=== PATIENT | female | born 1955 | race Two or more races ===

== ENCOUNTER 2019-04-09 09:43 | Inpatient (IN) | payer MEDICARE, MEDICAID ==
[~2019-04-09] VITALS: Ht 167.6 cm; Wt 74.4 kg
--- NOTE | 2019-04-09 10:05 | NUR ---
ER PHLEB AT BEDSIDE FOR BLOOD DRAW.
[2019-04-09 10:20] LABS: BASOPHILS % (AUTO) 0.7 % (0.0-2.0); EOSINOPHILS % (AUTO) 2.7 % (0.0-6.0); HEMATOCRIT 38 % (33-45); HEMOGLOBIN 12.1 g/dL (11.5-14.8); LYMPHOCYTES # (AUTO) 0.8 /CMM (0.8-4.8); LYMPHOCYTES % (AUTO) 20.8 % (20.0-44.0); MEAN CORPUSCULAR HGB CONC 32 g/dl (31.0-36.0); MEAN CORPUSCULAR VOLUME 87 fL (82-100); MONOCYTES # (AUTO) 0.3 /CMM (0.1-1.30); MONOCYTES % (AUTO) 9.2 % (2.0-12.0); NEUTROPHILS # (AUTO) 2.4 /CMM (1.8-8.9); NEUTROPHILS % (AUTO) 66.6 % (43.0-81.0); PLATELET COUNT (AUTO) 195 /CMM (150-450); RED BLOOD CELL COUNT(AUTO) 4.42 MIL/uL (4.0-5.2); WHITE BLOOD COUNT (AUTO) 3.6 K/uL (4.3-11.0)
[2019-04-09 10:28] LABS: CALCIUM, SERUM 10.5 mg/dL (8.5-10.1); CARBON DIOXIDE 23 mmol/L (21-32); CHLORIDE 109 mmol/L (98-107); CREATININE 0.6 mg/dL (0.6-1.3); GLUCOSE 104 mg/dL (74-106); POTASSIUM 3.9 mmol/L (3.5-5.1); SODIUM SERUM 140 mmol/L (136-145); UREA NITROGEN, BLOOD 10 mg/dL (7-18)
[2019-04-09] MEDS ORDERED: MAGN400O6 PO (10:31)
[2019-04-09] MEDS ORDERED: ASCO500T9 PO (10:31)
[2019-04-09] MEDS ORDERED: AMLO10TA7 PO (10:31)
[2019-04-09] MEDS ORDERED: LOSA50TA39 PO (10:31)
[2019-04-09] MEDS ORDERED: SIME80TA15 PO (10:31)
[2019-04-09] MEDS ORDERED: MERO1VIA3 IV (10:31)
[2019-04-09] MEDS ORDERED: TOPI50TA24 PO (10:31)
[2019-04-09] MEDS ORDERED: SERT50TA PO (10:31)
[2019-04-09] MEDS ORDERED: ACET-868 PO (10:31)
[2019-04-09] MEDS ORDERED: PRAV20TA4 PO (10:31)
[2019-04-09] MEDS ORDERED: BISA10SU11 RC (10:31)
[2019-04-09] MEDS ORDERED: HYDR-4384 PO (10:31)
[2019-04-09] MEDS ORDERED: TAMS-12 PO (10:31)
[2019-04-09] MEDS ORDERED: GABA-534 PO (10:31)
[2019-04-09] MEDS ORDERED: CALC-343 PO (10:31)
[2019-04-09] MEDS ORDERED: OMEP20CA11 PO (10:31)
[2019-04-09] MEDS ORDERED: DICL100G16 TP (10:31)
[2019-04-09] MEDS ORDERED: NA P133E RC (10:31)
[2019-04-09] MEDS ORDERED: CLON0.5T4 PO (10:31)
[2019-04-09] MEDS ORDERED: MINE133E RC (10:31)
[2019-04-09] MEDS ORDERED: OLAN5TAB3 PO (10:31)
[2019-04-09 10:34] LABS: ALANINE AMINOTRANSFERASE 18 U/L (12-78); ALBUMIN 3.4 g/dL (3.4-5.0); ALCOHOL, BLOOD < 3 mg/dL (0-0); ALKALINE PHOSPHATASE 87 U/L (46-116); ASPARTATE AMINOTRANSFERASE 12 U/L (15-37); BILIRUBIN,DIRECT 0.1 mg/dL (0.0-0.2); BILIRUBIN,TOTAL 0.3 mg/dL (0.2-1.0); TOTAL PROTEIN, SERUM 7.4 g/dL (6.4-8.2)
[2019-04-09 10:36] LABS: SALICYLATE 1.2 mg/dL (2.8-20.0)
[2019-04-09 10:37] LABS: APPEARANCE,URINE Clear (CLEAR); BILIRUBIN,URINE Negative (NEGATIVE); BLOOD, URINE Trace-intact Ery/uL (NEGATIVE); COLOR,URINE Light yellow (YELLOW); KETONES,URINE Negative (NEGATIVE); LEUKOCYTE ESTERASE ,URINE Trace (NEGATIVE); NITRITE, URINE Negative (NEGATIVE); PH,URINE 7.5 (5.0-8.0); PROTEIN,URINE Negative (NEGATIVE); UGLUCOSE Negative (NEGATIVE); UROBILINOGEN,URINE 0.2 EU/dL (0.2)
[2019-04-09 10:45] LABS: BACTERIA,URINE None seen /HPF (None Seen); MUCUS,URINE Moderate /LPF (None Seen); SQUAMOUS EPITHELIAL CELL,UR Many /HPF (None Seen)
--- NOTE | 2019-04-09 11:19 | NUR ---
RN SUP GAVE BED 210 A Addendum: 04/09/19 at 1125 by DUSTY CORRECTION: BED IS 212 A
--- NOTE | 2019-04-09 11:28 | NUR ---
Patient awake alert non distress she does follows command noted bilateral wrist lac superficial cleanse and cover ,lack to left neck superficial cleanse with saline
--- NOTE | 2019-04-09 11:29 | NUR ---
Fire Equipment Inspector Helper @ bedside now [id number] ,transfer care report to Reina rolle 212 A
[2019-04-09] MEDS ORDERED: ACETAMINOPHEN 325 MG TABLET PO PRN ×2 (13:00→14:30)
[2019-04-09] MEDS ORDERED: MAG HYDROX/AL HYDROX/SIMETH 30 ML UDC PO PRN (13:00)
[2019-04-09] MEDS ORDERED: BLOOD SUGAR DIAGNOSTIC 1 EACH STRIP IN ONE (13:00)
[2019-04-09] MEDS ORDERED: clonazePAM 0.5 MG TABLET PO PRN (13:00)
[2019-04-09 13:04] VITALS: BP 125/72
--- NOTE | 2019-04-09 14:00 | NUR ---
GPS ADMITTING NOTE: PT 63 Y/O FEMALE ADMITTED FROM [facility] DUE TO SUICIDAL ATTEMPT BY CUTTING HER WRIST WITH A DISPOSAL RAZOR BLADE. PT PLACED ON 5150 HOLD FOR DTS. PER HOLD PT STATED "I CUT MY WRIST WITH A DISPOSABLE RAZOR SHRUTI THAT A SHIPPING AND RECEIVING WEIGHER GAVE IT TO ME" .PT FURTHER STATED THAT SHE STARTED TO HEARING VOICES AGAIN TELLING HER" TO AND TO KILL MYSELF"UPON FACE TO FACE EVALUATION PT A/OX3 AMBULATORY , DENIES SI/HI AT THIS TIME DENIES FEELING DEPRESSED. PT ADMIT HEARING VOICES TELLING HER TO , PT FEELING ANGRY AT HERSELF .DR ADAM AWARE WITH STANDING ORDERS,VENKAT JOSE NOTIFIED OF ADMISSION AND TO RECONCILED HOME MEDICATIONS. PT SKIN CHECKED PICTURE PLACED IN THE CHART. ALL BELONGING AND CONTRABAND CHECKED.WILL CONTINUE CLOSE MONITORING FOR BEHAVIOR ,SAFETY.
[2019-04-09] MEDS ORDERED: HYDROCODONE/APAP 5/325MG 1 EACH TABLET PO PRN (14:30)
[2019-04-09] MEDS: NITROFURANTOIN/NITROFURAN MAC 100 MG CAPSULE PO SCH ×2 (15:20→21:05)
[2019-04-09 16:00] VITALS: BP 117/63
[2019-04-09] MEDS: SIMETHICONE 80 MG TAB.CHEW PO SCH ×2 (16:20→21:05)
[2019-04-09] MEDS ORDERED: DICLOFENAC TOPICAL 100 GM GEL..GM. TP SCH (17:00)
[2019-04-09] MEDS: MAGNESIUM HYDROXIDE 30 ML UDC PO PRN (19:52)
--- NOTE | 2019-04-09 19:54 | NUR ---
GPS RN NOTES: PATIENT STATED, "IM CONSTIPATED". PER PT REQUEST MOM. ADMINISTER MOM 30 ML PO. TOLERATED WELL CONTINUE TO MONITOR.
--- NOTE | 2019-04-09 21:09 | NUR ---
GPS RN NOTES: PT COMPLAIN OF 3/10 GENERAL BODY PAIN. PATIENT REQUESTED TYLENOL. ADMINISTERED TYLENOL 650 MG PO @ 2106. PT TOLERATED WELL CONT TO MONITOR.
[2019-04-09] MEDS ORDERED: DIAZEPAM 5 MG TABLET ONE (21:35)
[2019-04-09] MEDS: TAMSULOSIN 0.4 MG CAP.SR.24H PO SCH (22:02)
[2019-04-10 04:39] VITALS: BP 122/79
[2019-04-10] MEDS: clonazePAM 0.5 MG TABLET PO PRN ×3 (04:43→16:17)
--- NOTE | 2019-04-10 04:46 | NUR ---
GPS RN NOTES: UPON DOING ROUNDS, PT WAS AWAKE IN BED SITTING DOWN. WHEN ASKED PT IF SHE IS OKAY PT STATED, "I CANT GO BACK T SLEEP AND IM ANXIOUS. " OFFERED KLONOPIN 0.5 MG PO PRN. CHECKED VITALS. VITALS WNL ADMINISTERED MEDICATION. PT TOLERATED WELL CONTINUE TO MONITOR.
[2019-04-10 08:00] VITALS: BP 114/59
[2019-04-10] MEDS: SIMETHICONE 80 MG TAB.CHEW PO SCH ×4 (08:03→21:14)
[2019-04-10] MEDS: NITROFURANTOIN/NITROFURAN MAC 100 MG CAPSULE PO SCH ×2 (08:03→21:14)
[2019-04-10] MEDS: PANTOPRAZOLE 40 MG TABLET.DR PO SCH (08:03)
[2019-04-10 08:04] LABS: ALBUMIN 3.3 g/dL (3.4-5.0); BILIRUBIN,TOTAL 0.4 mg/dL (0.2-1.0); CALCIUM, SERUM 10.1 mg/dL (8.5-10.1); CREATININE 0.5 mg/dL (0.6-1.3); TOTAL PROTEIN, SERUM 7.1 g/dL (6.4-8.2)
[2019-04-10 08:05] LABS: CHOLESTEROL 190 mg/dL (<200); HDL CHOLESTEROL 46 mg/dL (40-60); LDL 106 mg/dL (0-99); TRIGLYCERIDES 185 mg/dL (30-150)
[2019-04-10] MEDS: LOSARTAN POTASSIUM 50 MG TABLET PO SCH (08:06)
[2019-04-10] MEDS: ATORVASTATIN 10 MG TABLET PO SCH (08:06)
[2019-04-10] MEDS: AMLODIPINE BESYLATE 10 MG TABLET PO SCH (08:07)
--- NOTE | 2019-04-10 09:13 | NUR ---
RN NOTE: PATIENT IS CURRENTLY HEARING VOICES TELLING HER TO KILL HERSELF. PATIENT DOES NOT HAVE A PLAN AND WILL CONTRACT FOR SAFETY IF SHE DOES WANT TO HARM HERSELF. CHARGE NURSE NOTIFIED. CODI MERRILL GIVEN.
--- NOTE | 2019-04-10 11:50 | NUR ---
Family Contact: SW called the pts daughter, Amara ([phone]), and left a message on her voicemail stating that the SW would like to speak to her regarding the pts care.
[2019-04-10] MEDS: SERTRALINE HCL 50 MG TABLET PO SCH (12:48)
--- NOTE | 2019-04-10 14:40 | NUR ---
Facility Contact: SW called [facility] ([phone]) and spoke to Nirali who stated that the pt would be readmitted back to the facility depending on the clinical that would sent upon his discharge. She stated that she is not too familiar with the case and will call the SW back with more information.
--- NOTE | 2019-04-10 14:42 | NUR ---
Initial Discharge Plan: Pt currently resides at [facility] [place] [address] [place] [address]; ([phone]). Per pt, she would like to return to the assisted living that she was residing in before the alf facility. JOSHUA spoke to Nirali ([phone]) in Admissions who stated that the pt would be readmitted depending on the clinical at the time of discharge. JOSHUA will work with the pt and the MD regarding appropriate discharge planning.
[2019-04-10 16:00] VITALS: BP 100/65
--- NOTE | 2019-04-10 16:19 | NUR ---
RN NOTE: PATIENT C/O ANXIETY. PRN KLONOPIN GIVEN.
[2019-04-10 20:46] VITALS: BP 99/68
[2019-04-10] MEDS: TAMSULOSIN 0.4 MG CAP.SR.24H PO SCH (21:14)
[2019-04-10] MEDS: TEMAZEPAM 7.5 MG CAPSULE PO PRN (21:33)
--- NOTE | 2019-04-10 21:33 | NUR ---
GPS/RN NOTE: REQUESTED FOR SLEEPING PILL, TEMAZEAPM 15 MG CAP PO GIVEN.
[2019-04-10] MEDS: MAGNESIUM HYDROXIDE 30 ML UDC PO PRN (21:44)
--- NOTE | 2019-04-10 21:44 | NUR ---
GPS/RN NOTE: C/O CONSTIPATION, MILK OF MAGNESIA 30 ML PO GIVEN.
[2019-04-10] MEDS ORDERED: OLANZAPINE 5 MG TABLET PO SCH (22:00)
[2019-04-11] MEDS: PANTOPRAZOLE 40 MG TABLET.DR PO SCH (07:30)
[2019-04-11 08:00] VITALS: BP 105/59
[2019-04-11] MEDS: clonazePAM 0.5 MG TABLET PO PRN ×3 (08:10→16:21)
[2019-04-11] MEDS: AMLODIPINE BESYLATE 10 MG TABLET PO SCH (08:10)
[2019-04-11] MEDS: ATORVASTATIN 10 MG TABLET PO SCH (08:10)
[2019-04-11] MEDS: SERTRALINE HCL 50 MG TABLET PO SCH (08:10)
[2019-04-11] MEDS: SIMETHICONE 80 MG TAB.CHEW PO SCH ×4 (08:10→20:37)
[2019-04-11] MEDS: LOSARTAN POTASSIUM 50 MG TABLET PO SCH (08:11)
--- NOTE | 2019-04-11 08:15 | NUR ---
SATINDER NOTE: PATIENT C/O ANXIETY. DESIRAE KLONOPIN GIVEN. Addendum: 04/11/19 at 1211 by ABBEY NGO RN PATIENT C/O ANXIETY, PRN KLONOPIN PO GIVEN
--- NOTE | 2019-04-11 08:47 | NUR ---
WOUND CARE CONSULT: PT PRESENTS WITH BILATERAL WRIST ABRASIONS AND BILATERAL NECK DRY ABRASIONS, PRESENT ON ADMISSION. RECOMMENDATIONS MADE FOR WOUND CARE FOR WRIST ABRASIONS. DISCUSSED WITH NURSING STAFF. NECK ABRASIONS ARE DRY AND OPEN TO AIR. PT IS CONTINENT AND INDEPENDENT WITH BED MOBILITY. WILL SEE PRN. [place] IN AGREEMENT WITH PLAN OF CARE. Addendum: 04/11/19 at 0848 by WALTER KRUEGER WNDNU Amended: Links added.
[2019-04-11] MEDS: NITROFURANTOIN/NITROFURAN MAC 100 MG CAPSULE PO SCH ×2 (09:09→20:37)
--- NOTE | 2019-04-11 09:11 | NUR ---
PROTONIX NOT AVAILABLE IN [facility]. PHARMACY CONTACTED. DOSE MISSED D/T MED UNAVAILABILITY.
--- NOTE | 2019-04-11 14:15 | NUR ---
Facility Contact: JOSHUA spoke to Nirali ([phone]) in Admissions for [facility] and stated that the pt is on a 7 Day Bed Hold and will be accepted back upon clinical after that point in time.
[2019-04-11 16:00] VITALS: BP 103/64
--- NOTE | 2019-04-11 16:23 | NUR ---
RN NOTE: PATIENT IS C/O ANXIETY. PRN KLONOPIN GIVEN.
--- NOTE | 2019-04-11 19:36 | NUR ---
GPS/RN NOTE: RESTING QUIETLY IN BED, CALM, COMFORTABLE, NO APPARENT DISTRESS NOTED. WILL CONTINUE MONITOR FOR SAFETY.
[2019-04-11 19:54] VITALS: BP 114/61
[2019-04-11] MEDS: TAMSULOSIN 0.4 MG CAP.SR.24H PO SCH (20:36)
[2019-04-11] MEDS: MAGNESIUM HYDROXIDE 30 ML UDC PO PRN (20:37)
--- NOTE | 2019-04-11 20:39 | NUR ---
GPS/RN NOTE: REQUESTED FOR MILK OF MAGNESIA 30 ML PO GIVEN.
[2019-04-11] MEDS: TEMAZEPAM 7.5 MG CAPSULE PO PRN (20:48)
--- NOTE | 2019-04-11 20:49 | NUR ---
GPS/RN NOTE: TEMAZEPAM 15 MG CAP PO GIVEN FOR SLEEP PER PATIENT'S REQUEST
[2019-04-11] MEDS: OLANZAPINE 5 MG TABLET PO SCH (21:37)
--- NOTE | 2019-04-12 01:50 | NUR ---
RN NOTE: PATIENT IS C/O ANXIETY. PRN KLONOPIN GIVEN. ALSO PT COMPLAINING NOT URINATION MUCH,BALDER SCAN DONE WITH 500 , DR NERI NOTIFIED WITH NO ORDER AT THIS TIME .
[2019-04-12 08:00] VITALS: BP 105/64
[2019-04-12] MEDS: LOSARTAN POTASSIUM 50 MG TABLET PO SCH (08:27)
[2019-04-12] MEDS: PANTOPRAZOLE 40 MG TABLET.DR PO SCH (08:27)
[2019-04-12] MEDS: SIMETHICONE 80 MG TAB.CHEW PO SCH ×4 (08:28→20:26)
[2019-04-12] MEDS: AMLODIPINE BESYLATE 10 MG TABLET PO SCH (08:28)
[2019-04-12] MEDS: ATORVASTATIN 10 MG TABLET PO SCH (08:29)
[2019-04-12] MEDS: NITROFURANTOIN/NITROFURAN MAC 100 MG CAPSULE PO SCH ×2 (08:29→20:26)
[2019-04-12] MEDS: clonazePAM 0.5 MG TABLET PO PRN ×2 (08:42→16:17)
[2019-04-12] MEDS ORDERED: SERTRALINE HCL 50 MG TABLET PO SCH (09:00)
--- NOTE | 2019-04-12 11:35 | NUR ---
GPS RN NOTE: PT URINATE X2 NO S/S DISTRESS NOTED AT THIS TIME.
[2019-04-12 16:00] VITALS: BP 114/61
[2019-04-12 20:11] VITALS: BP 100/65
[2019-04-12] MEDS: MAGNESIUM HYDROXIDE 30 ML UDC PO PRN (20:27)
[2019-04-12] MEDS: TEMAZEPAM 7.5 MG CAPSULE PO PRN (20:29)
--- NOTE | 2019-04-12 20:30 | NUR ---
GPS/RN NOTE: TEMAZEPAM 15 MG CAP PO FOR SLEEP PER HER REQUEST. C/O ALSO OF CONSTIPATION, MILK OF MAGNESIA 30 ML PO GIVEN.
[2019-04-12] MEDS: OLANZAPINE 5 MG TABLET PO SCH (21:36)
[2019-04-12] MEDS: TAMSULOSIN 0.4 MG CAP.SR.24H PO SCH (21:36)
[2019-04-13 08:00] VITALS: BP 130/63
[2019-04-13] MEDS: clonazePAM 0.5 MG TABLET PO PRN ×2 (08:01→13:18)
[2019-04-13] MEDS: LOSARTAN POTASSIUM 50 MG TABLET PO SCH (08:02)
[2019-04-13] MEDS: AMLODIPINE BESYLATE 10 MG TABLET PO SCH (08:02)
[2019-04-13] MEDS: PANTOPRAZOLE 40 MG TABLET.DR PO SCH (08:02)
[2019-04-13] MEDS: SIMETHICONE 80 MG TAB.CHEW PO SCH ×4 (08:02→21:07)
[2019-04-13] MEDS: NITROFURANTOIN/NITROFURAN MAC 100 MG CAPSULE PO SCH ×2 (08:03→21:06)
[2019-04-13] MEDS: ATORVASTATIN 10 MG TABLET PO SCH (08:03)
[2019-04-13] MEDS: SERTRALINE HCL 50 MG TABLET PO SCH (08:39)
--- NOTE | 2019-04-13 13:18 | NUR ---
GPS RN NOTE: CLONAZEPAM 0.5MG ADMINISTERED REQUESTED PRN FOR ANXIETY
--- NOTE | 2019-04-13 14:17 | NUR ---
Group Note: SW encouraged pt. to participate in group on 04/13/19 regarding gratefulness and holiday sensory activity held at 1:00pm in the activity room. Pt refused to attend stating, I too tired, I want to rest. SW encouraged patient to attend later but respected patient's self-determination.
[2019-04-13 16:00] VITALS: BP 110/61
[2019-04-13] MEDS: MAGNESIUM HYDROXIDE 30 ML UDC PO PRN (20:36)
--- NOTE | 2019-04-13 20:40 | NUR ---
GPS RN NOTES: PT STATED, "I FEEL CONSTIPATED. CAN I HAVE MILK OF MG PLEASE?" ADMINISTERED MOM 15ML PO PRN. PT TOLERATED WELL. CONT TO MONITOR.
[2019-04-13] MEDS: TAMSULOSIN 0.4 MG CAP.SR.24H PO SCH (21:07)
--- NOTE | 2019-04-13 21:09 | NUR ---
GPS RN NOTES: ADMINISTER MEDICATION DUE. UNABLE TO SCAN MACROBID CHECKED WITH CHARGE NURSE WITH MEDICATION. RETURNED MEDICATION AND ADMINISTERED OTHER MACROBID DID NOT SCAN AGAIN. CHECKED WITH CHARGE NURSE. PT TOLERATED MED WELL CONT TO MON
[2019-04-13 21:10] VITALS: BP 100/55
[2019-04-13] MEDS: OLANZAPINE 5 MG TABLET PO SCH (22:17)
[2019-04-13] MEDS: TEMAZEPAM 7.5 MG CAPSULE PO PRN (22:23)
--- NOTE | 2019-04-13 22:25 | NUR ---
GPS RN NOTES: PT STATED, "I CANT GO TO SLEEP. CAN I HAVE A SLEEPING PILL NOW" ADMINISTERED RESTORIL 15MG PO PRN ORDERED. PT TOLERATED WELL. CONT TO MONITOR.
[2019-04-14 08:00] VITALS: BP 114/71
[2019-04-14] MEDS: PANTOPRAZOLE 40 MG TABLET.DR PO SCH (08:16)
[2019-04-14] MEDS: LOSARTAN POTASSIUM 50 MG TABLET PO SCH (08:16)
[2019-04-14] MEDS: ATORVASTATIN 10 MG TABLET PO SCH (08:16)
[2019-04-14] MEDS: SIMETHICONE 80 MG TAB.CHEW PO SCH ×4 (08:17→21:08)
[2019-04-14] MEDS: SERTRALINE HCL 50 MG TABLET PO SCH (08:17)
[2019-04-14] MEDS: AMLODIPINE BESYLATE 10 MG TABLET PO SCH (08:17)
[2019-04-14] MEDS: NITROFURANTOIN/NITROFURAN MAC 100 MG CAPSULE PO SCH ×2 (08:18→21:09)
--- NOTE | 2019-04-14 08:46 | NUR ---
GPS RN NOTE: SPOKE TO ARMAND LEWIS REGARDING D/C PLANNING FOR PATIENT. PATIENT DOES NOT WANT TO GO BACK TO REHAB, [facility], AND STATES SHE IS UNABLE TO CONTRACT FOR SAFETY IF SHE IS DISCHARGED.
[2019-04-14] MEDS: BISACODYL SUPP (10 MG) 10 MG/SUPP.RECT SUPP.RECT RC PRN (09:45)
--- NOTE | 2019-04-14 09:48 | NUR ---
GPS RN NOTE: RECTAL DUCOLAX SUPP ADMINISTERED REQUESTED FOR CONSTIPATION
--- NOTE | 2019-04-14 11:10 | NUR ---
Facility Contact: SW spoke to Nirali ([phone]) in Admissions for [facility] and informed her that the pt does not want to return to the facility due to her feeling like she would be triggered in that environment.
--- NOTE | 2019-04-14 11:49 | NUR ---
Individual Intervention: Pt stated that she did not want to return to the facility where she attempted suicide and asked the SW to place her elsewhere. SW stated that she would send out alternative referrals.
--- NOTE | 2019-04-14 14:50 | NUR ---
SS Group Note 04/14/19: SW to invite patient to attend today's support group at 1:00pm regarding Mindfulness in the activities room. The patient presented laying on her bed and appeared lethargic. Patient refused, stating, I'm okay but want to sleep. SW encouraged patient to attend and informed pt. that it would be a relaxation technique. Pt. refused and SW respected patient's self-determination.
--- NOTE | 2019-04-14 15:06 | NUR ---
SNF Referral: JOSHUA faxed referrals to two facilities that are listed below. [facility] to the fax number: [phone] [facility] to the fax number: [phone]
--- NOTE | 2019-04-14 15:07 | NUR ---
Assisted/Independent Living Referral: JOSHUA faxed a referral to [facility] with attention to Andre to the fax number: [phone].
[2019-04-14 16:00] VITALS: BP 105/67
[2019-04-14] MEDS: clonazePAM 0.5 MG TABLET PO PRN (16:22)
[2019-04-14 20:03] VITALS: BP 86/41
[2019-04-14] MEDS: MAGNESIUM HYDROXIDE 30 ML UDC PO PRN (20:28)
--- NOTE | 2019-04-14 20:30 | NUR ---
PT STATED, "I FEEL CONSTIPATED. I NEED MILK OF MAG". RECHECKED PT VITALS WNL WITH BP 101/69, PULSE 56, TEM 97.7, RESP 18, O2 97. BREATHING EVENLY AND UNLABORED. ADMIN MOM ORDER PRN. CONT TO MONITOR
[2019-04-14 20:33] VITALS: BP 101/69
[2019-04-14] MEDS: TAMSULOSIN 0.4 MG CAP.SR.24H PO SCH (21:08)
[2019-04-14] MEDS: OLANZAPINE 5 MG TABLET PO SCH (21:08)
[2019-04-14] MEDS: TEMAZEPAM 7.5 MG CAPSULE PO PRN (21:12)
--- NOTE | 2019-04-14 21:15 | NUR ---
GPS RN NOTES: PER PT REQUESTED SLEEPING PILL. PT STATED, " I CANT SLEEP". OFFERED RESTORIL 15MG PO PRN. PT TOLERATED WELL. CONT TO MONITOR.
[2019-04-15 08:00] VITALS: BP 112/73
[2019-04-15] MEDS: PANTOPRAZOLE 40 MG TABLET.DR PO SCH (08:23)
[2019-04-15] MEDS: SIMETHICONE 80 MG TAB.CHEW PO SCH ×4 (08:23→21:04)
[2019-04-15] MEDS: ATORVASTATIN 10 MG TABLET PO SCH (08:24)
[2019-04-15] MEDS: LOSARTAN POTASSIUM 50 MG TABLET PO SCH (08:24)
[2019-04-15] MEDS: SERTRALINE HCL 50 MG TABLET PO SCH (08:24)
[2019-04-15] MEDS: AMLODIPINE BESYLATE 10 MG TABLET PO SCH (08:25)
[2019-04-15] MEDS: BISACODYL SUPP (10 MG) 10 MG/SUPP.RECT SUPP.RECT RC PRN (08:34)
[2019-04-15] MEDS: NITROFURANTOIN/NITROFURAN MAC 100 MG CAPSULE PO SCH ×2 (09:00→21:05)
--- NOTE | 2019-04-15 10:38 | NUR ---
GPS/RN MACROBID 100MG GIVEN. BARCODE NOT SCANNABLE. PHARMACY MADE AWARE.
[2019-04-15 16:00] VITALS: BP 117/69
[2019-04-15 20:00] VITALS: BP 102/67
[2019-04-15] MEDS: MAGNESIUM HYDROXIDE 30 ML UDC PO PRN (20:49)
[2019-04-15] MEDS: OLANZAPINE 5 MG TABLET PO SCH (21:04)
[2019-04-15] MEDS: TAMSULOSIN 0.4 MG CAP.SR.24H PO SCH (21:04)
[2019-04-15] MEDS: TEMAZEPAM 7.5 MG CAPSULE PO PRN (21:43)
[2019-04-16] MEDS: PANTOPRAZOLE 40 MG TABLET.DR PO SCH (07:35)
[2019-04-16 08:00] VITALS: BP 122/74
[2019-04-16] MEDS: NITROFURANTOIN/NITROFURAN MAC 100 MG CAPSULE PO SCH ×2 (08:34→21:14)
[2019-04-16] MEDS: LOSARTAN POTASSIUM 50 MG TABLET PO SCH (08:34)
[2019-04-16] MEDS: ATORVASTATIN 10 MG TABLET PO SCH (08:34)
[2019-04-16] MEDS: SERTRALINE HCL 50 MG TABLET PO SCH (08:34)
[2019-04-16] MEDS: SIMETHICONE 80 MG TAB.CHEW PO SCH ×4 (08:34→21:10)
[2019-04-16] MEDS: AMLODIPINE BESYLATE 10 MG TABLET PO SCH (08:35)
[2019-04-16] MEDS: clonazePAM 0.5 MG TABLET PO PRN (08:40)
[2019-04-16 16:00] VITALS: BP 115/81
[2019-04-16 19:44] VITALS: BP 98/61
[2019-04-16] MEDS: MAGNESIUM HYDROXIDE 30 ML UDC PO PRN (21:13)
[2019-04-16] MEDS: TAMSULOSIN 0.4 MG CAP.SR.24H PO SCH (21:14)
[2019-04-16] MEDS: OLANZAPINE 5 MG TABLET PO SCH (22:00)
--- NOTE | 2019-04-17 06:32 | NUR ---
GPS RN NOTE: PATIENT REFUSED PHOTOS, EXPLAINED THE RISK AND BENEFITS, PATIENT STATED " I DONT WANT YOU GUYS TO TAKE PICTURES OF THAT EVER AND GET OUT OF HERE". WILL ENDORSED TO THE NEXT SHIFT.
--- NOTE | 2019-04-17 07:10 | NUR ---
GPS RN NOTE: PATIENT FOUND LAYING DOWN ON THE FLOOR, ASSESSED THE PATIENT, PATIENT AWAKE, ALERT AND ORIENTED X 3, PATIENT STATED THAT SHE DID NOT FALL, SHE WAS ON HER WAY TO THE RESTROOM BUT SHE FEELS WEAK, SHE GOT DIZZY SO SHE LAY DOWN ON THE FLOOR. PATIENT STATED REPEATEDLY SAID THAT SHE DID NOT FALL AND SHE JUST WANT TO SLEEP. SKIN IS INTACT, NO NEW SKIN BREAKDOWN NOTED, PATIENT DENIES PAIN AND DISCOMFORT. BLOOD PRESSURE 125/65 P=68 R=18. ASSISTED THE PATIENT BACK TO BED. ENDORSED TO THE NEXT SHIFT TO CONTINUE TO MONITOR AND FOLLOW UP WITH MD. ENDORSED.
[2019-04-17] MEDS: PANTOPRAZOLE 40 MG TABLET.DR PO SCH (07:45)
[2019-04-17] MEDS: clonazePAM 0.5 MG TABLET PO PRN ×3 (07:45→18:28)
--- NOTE | 2019-04-17 07:51 | NUR ---
RN NOTE: PATIENT IS CURRENTLY VERBALIZING SI, HITTING HER HEAD STATING THAT SHE WANTS TO KILL HERSELF WITH NO PLAN. CN INFORMED. PRN KLONOPIN GIVEN. STATED THAT SHE FEELS THIS WAY BECAUSE SHE DIDN'T SLEEP MUCH LAST NIGHT AND SHE DIDN'T TAKE HER PM MEDS BECAUSE SHE WAS HYPOTENSIVE. WILL CONTINUE TO CLOSELY MONITOR PATIENT FOR SAFETY AND BEHAVIOR.
[2019-04-17 08:00] VITALS: BP 139/91
[2019-04-17] MEDS: NITROFURANTOIN/NITROFURAN MAC 100 MG CAPSULE PO SCH ×2 (08:04→21:00)
[2019-04-17] MEDS: SERTRALINE HCL 50 MG TABLET PO SCH (08:04)
[2019-04-17] MEDS: ATORVASTATIN 10 MG TABLET PO SCH (08:04)
[2019-04-17] MEDS: SIMETHICONE 80 MG TAB.CHEW PO SCH ×4 (08:05→21:28)
[2019-04-17] MEDS: AMLODIPINE BESYLATE 10 MG TABLET PO SCH (09:00)
[2019-04-17] MEDS: LOSARTAN POTASSIUM 50 MG TABLET PO SCH (09:00)
--- NOTE | 2019-04-17 13:58 | NUR ---
RN NOTE: PATIENT C/O ANXIETY. PRN ATIVAN GIVEN. Addendum: 04/17/19 at 1828 by ABBEY NGO RN CORRECTION, KLONODARIUS GIVEN.
--- NOTE | 2019-04-17 15:00 | NUR ---
GROUP NOTE: SW assessed pts ability to participate in group therapy discussing "discharge planning." Pt is unable to participate due to having Delusional thoughts and impaired reality, being isolative, and not being able to engage in a coherent conversation.
[2019-04-17 16:00] VITALS: BP 118/72
--- NOTE | 2019-04-17 18:28 | NUR ---
RN NOTE: PATIENT C/O ANXIETY, PRN KLONOPIN GIVEN.
[2019-04-17] MEDS: MAGNESIUM HYDROXIDE 30 ML UDC PO PRN (20:32)
--- NOTE | 2019-04-17 20:33 | NUR ---
GPS RN NOTES: UPON DOING ROUNDS PT STATED, "I FEEL CONSTIPATED. I NEED MILK OF MAG". RECHECKED PT VITALS WNL WITH BP 102/68, PULSE 56, TEM 97.8, RESP 18, O2 96. BREATHING EVENLY AND UNLABORED. ADMIN MOM ORDER PRN. CONT TO MONITOR
[2019-04-17 20:36] VITALS: BP 102/68
[2019-04-17 20:43] VITALS: BP_SYST 101; BP_SYST 133; BP_DIAS 53; BP_DIAS 67
[2019-04-17] MEDS: TAMSULOSIN 0.4 MG CAP.SR.24H PO SCH (21:28)
[2019-04-17] MEDS: OLANZAPINE 5 MG TABLET PO SCH (21:29)
--- NOTE | 2019-04-17 21:32 | NUR ---
GPS RN NOTES: HELD MACROBID 100MG PO @ 2200. MEDICATION IS NOT RENEWED. CONTINUE TO MONITOR.
[2019-04-18] MEDS: clonazePAM 0.5 MG TABLET PO PRN ×2 (06:08→12:36)
--- NOTE | 2019-04-18 06:12 | NUR ---
GPS RN NOTES: PT C/O SHE FEELS ANXIOUS. PT STATED, "CAN I HAVE SOMETHING FOR MY ANXIETY?" RECHECKED PT VITALS WITH BP 120/73, RATE 62, RESP 18, O2 97% TEMPT 97.7. BREATHING EVENLY AND UNLABORED. NO S/S OF RESP DISTRESS. OFFERED KLONOPIN 0.5MG PO PRN ORDERED. PT TOLERATED WELL. CONT TO MONITOR.
[2019-04-18 06:16] VITALS: BP 120/73
[2019-04-18 08:00] VITALS: BP 120/73
[2019-04-18] MEDS: PANTOPRAZOLE 40 MG TABLET.DR PO SCH (08:15)
[2019-04-18] MEDS: SIMETHICONE 80 MG TAB.CHEW PO SCH ×4 (08:18→21:43)
[2019-04-18] MEDS: NITROFURANTOIN/NITROFURAN MAC 100 MG CAPSULE PO SCH (08:19)
[2019-04-18] MEDS: ATORVASTATIN 10 MG TABLET PO SCH (08:19)
[2019-04-18] MEDS: LOSARTAN POTASSIUM 50 MG TABLET PO SCH (08:20)
[2019-04-18] MEDS ORDERED: SERTRALINE HCL 50 MG TABLET PO SCH (09:00)
--- NOTE | 2019-04-18 09:11 | NUR ---
SNF Contact: Argelia ([phone]) from [facility] contacted the SW and stated that the pt was accepted to their facility but they do not have a bed available until Wednesday.
--- NOTE | 2019-04-18 09:12 | NUR ---
Independent Living Contact: SW called an independent living requested by the pt called [facility] and spoke to [facility] ([phone]) who stated that he will arrive at 1pm today to assess the pt for his facility.
--- NOTE | 2019-04-18 09:51 | NUR ---
WOUND CARE CONSULT: RECEIVED REQUEST FOR RE-EVALUATION OF BILATERAL WRISTS. AREAS ARE NOW HEALED. SOME REDNESS NOTED FROM PREVIOUS TAPE BUT NO TENDERNESS OR DRAINAGE NOTED. RECOMMEND LEAVE HEALED ABRASIONS OPEN TO AIR AT THIS TIME. DISCUSSED WITH NURSING STAFF. WILL SEE PRN.
[2019-04-18 10:30] LABS: APPEARANCE,URINE SL CLOUDY (CLEAR); BILIRUBIN,URINE NEGATIVE (NEGATIVE); BLOOD, URINE NEGATIVE Ery/uL (NEGATIVE); COLOR,URINE YELLOW (YELLOW); KETONES,URINE NEGATIVE (NEGATIVE); LEUKOCYTE ESTERASE ,URINE NEGATIVE (NEGATIVE); NITRITE, URINE NEGATIVE (NEGATIVE); PH,URINE 7.5 (5.0-8.0); PROTEIN,URINE NEGATIVE (NEGATIVE); UGLUCOSE NEGATIVE (NEGATIVE); UROBILINOGEN,URINE 0.2 EU/dL (0.2)
--- NOTE | 2019-04-18 12:36 | NUR ---
RN NOTE: PATIENT C/O ANXIETY, PRN KLONOPIN GIVEN.
--- NOTE | 2019-04-18 15:10 | NUR ---
Group Note: SW encouraged the pt to attend group therapy on 04/18/19 at 2pm on the topic of discharge planning. SW assessed pts ability to participate in group therapy. Pt stated that she has spoken to her SW regarding her discharge to an independent living that the SW had arranged for her since she did not want to go to the place that she had requested due to the linux unix system administrator giving her a negative feeling.
[2019-04-18 16:00] VITALS: BP 97/63
[2019-04-18 20:15] VITALS: BP 99/51
[2019-04-18] MEDS: MAGNESIUM HYDROXIDE 30 ML UDC PO PRN (21:05)
[2019-04-18] MEDS: OLANZAPINE 5 MG TABLET PO SCH (21:43)
[2019-04-18] MEDS: TAMSULOSIN 0.4 MG CAP.SR.24H PO SCH (21:43)
[2019-04-19] MEDS: clonazePAM 0.5 MG TABLET PO PRN ×2 (06:32→15:52)
--- NOTE | 2019-04-19 06:33 | NUR ---
PT C/O OF FEELING ANXIOUS. PT STATED, "CAN I HAVE MY KLONOPIN PLEASE?" CHECKED PT VITALS WNL BP 111/65, PULSE 60, TEMPT 97.8, RESP 20. ADMINISTER MEDICATION KLONOPIN 0.5MG PO PRN ORDERED. CONTINUE TO MONITOR.
[2019-04-19 06:36] VITALS: BP 111/65
[2019-04-19] MEDS: PANTOPRAZOLE 40 MG TABLET.DR PO SCH (07:47)
[2019-04-19 08:00] VITALS: BP 100/69
[2019-04-19] MEDS: LOSARTAN POTASSIUM 50 MG TABLET PO SCH (08:28)
[2019-04-19] MEDS: SIMETHICONE 80 MG TAB.CHEW PO SCH ×4 (08:29→21:15)
[2019-04-19] MEDS: ATORVASTATIN 10 MG TABLET PO SCH (08:29)
[2019-04-19] MEDS: SERTRALINE HCL 50 MG TABLET PO SCH (08:32)
[2019-04-19] MEDS: MAGNESIUM HYDROXIDE 30 ML UDC PO PRN (09:37)
--- NOTE | 2019-04-19 09:37 | NUR ---
RN NOTE- CONTINUED CONSTIPATION THOUGH PT STATES SHE HAD SMALL BM EARLIER THIS MORNING. REQUESTED MOM AGAIN. PRN MOM GIVEN
[2019-04-19] MEDS ORDERED: BISACODYL (5 MG) 5 MG TABLET.DR PO ONE (13:00)
[2019-04-19 16:00] VITALS: BP 108/63
[2019-04-19 20:17] VITALS: BP 108/72
[2019-04-19] MEDS: OLANZAPINE 5 MG TABLET PO SCH (21:15)
[2019-04-19] MEDS: TAMSULOSIN 0.4 MG CAP.SR.24H PO SCH (21:15)
[2019-04-19] MEDS: TEMAZEPAM 7.5 MG CAPSULE PO PRN (21:35)
--- NOTE | 2019-04-19 21:37 | NUR ---
police chief notes pt requested to have her sleeping medication, educated her regarding possible side effect and pt understood well. kept her warm and comfortable at all times. will continue closely monitoring for safety.
[2019-04-20] MEDS: PANTOPRAZOLE 40 MG TABLET.DR PO SCH (07:58)
[2019-04-20 08:00] VITALS: BP 117/72
[2019-04-20] MEDS: SERTRALINE HCL 50 MG TABLET PO SCH (08:01)
[2019-04-20] MEDS: ATORVASTATIN 10 MG TABLET PO SCH (08:01)
[2019-04-20] MEDS: SIMETHICONE 80 MG TAB.CHEW PO SCH ×4 (08:02→21:30)
[2019-04-20] MEDS: LOSARTAN POTASSIUM 50 MG TABLET PO SCH (08:02)
[2019-04-20] MEDS: clonazePAM 0.5 MG TABLET PO PRN ×3 (08:04→16:20)
--- NOTE | 2019-04-20 08:05 | NUR ---
PATIENT C/O ANXIETY. PRN KLONOPIN GIVEN.
[2019-04-20] MEDS: MAGNESIUM HYDROXIDE 30 ML UDC PO PRN ×2 (09:22→21:30)
--- NOTE | 2019-04-20 09:22 | NUR ---
PT C/O CONSTIPATION. PRN MOM GIVEN.
--- NOTE | 2019-04-20 09:56 | NUR ---
PT C/;O URINARY RETENTION. ASKED PATIENT TO EMPTY BLADDER MUCH SHE CAN. DID A BLADDER SCAN WITH 345ML RESIDUAL. CONTACTED DR HUSAIN TO REPORT FINDINGS. AWAITING CALL BACK. Addendum: 04/20/19 at 1000 by ABBEY NGO RN INFORMED DR HUSAIN ABOUT THE URINARY RETENTION WITH ORDERS TO INCREASE FLOMAX TO 0.8MG AND TO DO A ONE TIME STRAIGHT CATH IF PATIENT HAS RESIDUAL >400ML.
--- NOTE | 2019-04-20 12:13 | NUR ---
RN NOTE: PATIENT C/O ANXIETY. PRN KLONOPIN GIVEN
--- NOTE | 2019-04-20 15:46 | NUR ---
SS GROUP NOTE 04/20/19: SW assessed pt.'s ability to participate in group therapy regarding what they would like to to be different as a result of their stay here. However, pt. was deflecting stating "my back hurts", "I don't have my walker". However, pt. was ambulating with out it. SW encourage pt. to attend and just sit it. Pt. declined. SW respected pt.'s self determination.
[2019-04-20 16:00] VITALS: BP 111/66
--- NOTE | 2019-04-20 16:22 | NUR ---
PATIENT C/O ANXIETY. PRN KLONOPIN GIVEN.
--- NOTE | 2019-04-20 19:30 | NUR ---
GPS RN NOTE, RECEIVED PATIENT AWAKE AND IN BED, NO S/S OR COMPLAINTS OF PAIN AT THIS TIME. PATIENT IS DISPLAYING NO S/S OF APPARENT DISTRESS AT THIS TIME. PATIENT BREATHING IS UNLABORED WITH EQUAL RISE AND FALL OF THE CHEST. PATIENT IS ALERT AND ORIENTED X 3 ON ROOM AIR WITH A SPO2 99%. PATIENT COMPLAINT WITH MEDICATION, ANXIOUS, COOPERATIVE, GUARDED, SUSPICIOUS, AND NEEDS REORIENTATION. PATIENT DENIES SUICIDE AND HOMICIDAL IDEATIONS AT THIS TIME. PATIENT ASSISTED WITH TURNING AND REPOSITIONING Q2HR AND PRN FOR COMFORT AND CIRCULATION. PATIENT HAS NO NEEDS AT THIS TIME. PATIENT EDUCATED ON THE USE OF THE CALL VAUGHAN. PATIENT BED SIDE RAILS UP X2 FOR SAFETY, BED IS LOCKED AND LOW WILL CONTINUE TO MONITOR AND MAINTAIN SAFETY.
[2019-04-20 20:27] VITALS: BP 95/67
[2019-04-20] MEDS: OLANZAPINE 5 MG TABLET PO SCH (21:30)
[2019-04-20] MEDS: TAMSULOSIN 0.4 MG CAP.SR.24H PO SCH (21:30)
--- NOTE | 2019-04-20 21:30 | NUR ---
GPS RN NOTE, PATIENT HAS A COMPLAINT OF CONSTIPATION AND IS REQUESTING MILK OF MAGNESIA AT THIS TIME. PATIENT VITAL SIGNS ARE STABLE. GAVE MILK OF MAGNESIA UD 30 ML 1 UNIT DOSE PO Q12HR PRN ORDERED. WILL REASSESS PATIENT AND I WILL CONTINUE TO MONITOR THIS PATIENT.
[2019-04-21] MEDS: clonazePAM 0.5 MG TABLET PO PRN (06:50)
[2019-04-21] MEDS: PANTOPRAZOLE 40 MG TABLET.DR PO SCH (07:48)
[2019-04-21 08:00] VITALS: BP 101/67
[2019-04-21 08:21] VITALS: BP 101/67
[2019-04-21] MEDS: LOSARTAN POTASSIUM 50 MG TABLET PO SCH (08:21)
[2019-04-21] MEDS: SIMETHICONE 80 MG TAB.CHEW PO SCH (08:22)
[2019-04-21] MEDS: SERTRALINE HCL 50 MG TABLET PO SCH (08:23)
[2019-04-21] MEDS: ATORVASTATIN 10 MG TABLET PO SCH (08:23)
--- NOTE | 2019-04-21 09:55 | NUR ---
DR. ADAM GAVE AN ORDER TO D/C HOLD AND D/C TO [facility] AND TO FOLLOW UP WITH PSYCH AND MEDICAL DOCTORS.
--- NOTE | 2019-04-21 10:24 | NUR ---
AUTUMN JOSE MADE AWARE OF PTS. DISCHARGE TO [facility] AND PROVIDED PRESCRIPTIONS. TO CONTINUE ROUTINE MEDS AND D/C PRN.
--- NOTE | 2019-04-21 11:15 | NUR ---
RN NOTE- PT D/C AT THIS TIME TO [facility] ACCOMPANIED BY STAFF FROM FACILITY. VALUABLES AND POSSESSIONS RETURNED TO PT AND SIGNED FOR. ID WRISTBAND REMOVED. PT VS STABLE, CALM AOX4, DIRECTABLE AND DENYING SI HI AH VH AT TIME OF DC. Addendum: 04/21/19 at 1345 by HUSSAIN SALCEDO RN SATINDER NOTE- PT REFUSED PHOTOGRAPHS AT DC.
--- NOTE | 2019-04-21 14:49 | NUR ---
Discharge Note: Pt was [facility] to [facility] [place] at [address] [place], [place]; ([phone]). Pt was picked up by the facility around 11AM. Upon discharge, the pt appeared to be in a euthymic mood and presented with a calm affect. Pt stated that she wanted to be discharged and felt comfortable with the placement. Pt denied both suicidal and homicidal ideation as well as auditory and visual hallucinations. Pt was referred to [facility] for mental health services [place] at [address] [place] [address]; ; and a fax of records was sent to: . Pt will also be under the care of her bunch breaker, Dr. Althea Juan, located at [address] [place] [address]; .
== END 2019-04-21 11:10 | DRG 885 ==
LOC: ER 09:43 → GPS 11:48
PROVIDERS: ADMIT Psychiatry & Neurology Psychiatry; ATTEND Nurse Practitioner Acute Care
DX: F25.9 Schizoaffective disorder, unspecified (principal); N39.0 Urinary tract infection, site not specified; E44.1 Mild protein-calorie malnutrition; S61.511A Laceration without foreign body of right wrist, initial encounter; X78.9XXA Intentional self-harm by unspecified sharp object, initial encounter; S10.91XA Abrasion of unspecified part of neck, initial encounter; I10 Essential (primary) hypertension; D72.819 Decreased white blood cell count, unspecified; M19.90 Unspecified osteoarthritis, unspecified site; E88.09 Other disorders of plasma-protein metabolism, not elsewhere classified; Z87.440 Personal history of urinary (tract) infections; Z68.26 Body mass index [BMI] 26.0-26.9, adult; Z91.5 Personal history of self-harm; Z88.0 Allergy status to penicillin; X78.8XXA Intentional self-harm by other sharp object, initial encounter; Y93.9 Activity, unspecified; Y92.129 Unspecified place in nursing home as the place of occurrence of the external cause; S61.512A Laceration without foreign body of left wrist, initial encounter; Z79.899 Other long term (current) drug therapy
CPT/HCPCS: 36415; 80048-TC; 80053-TC; 80061-TC; 80076-TC; 80305; 81000-TC; 82962-TC; 85025-TC; 87081-TC; 87086-TC; G0480